=== PATIENT | male | born 1940 | race Caucasian/White ===

== ENCOUNTER 2019-07-08 16:01 | Emergency (ER) | payer MEDICARE, BC, SELFPAY ==
[2019-07-08] VITALS (9 sets, daily range): BP systolic 103–117; BP diastolic 71–81; PULSE 84–98; RESP 14–21; TEMP 36.6; O2SAT 98–100
--- NOTE | ~2019-07-08 | CT_ITS ---
EXAMINATION: CT abdomen pelvis w con EXAM DATE: 07/08/2019 17:01 INDICATION: Abdominal pain. TECHNIQUE: Spiral CT of the abdomen and pelvis was performed following intravenous injection of 100 m L Omnipaque 350. Axial, coronal and sagittal images were reviewed. The dose-length product (DLP) fo r this examination was 219.93 mGy-cm. The exposure was tailored according to patient size (auto mA e xposure control), and iterative reconstruction (ASIR) was used as additional dose reduction technique . There is no prior study for comparison. FINDINGS: There is a loop of small bowel or possibly contained abscess in the right lower quadrant co ntaining low-density fluid. If loop of bowel, low density could indicate stasis. Abscess typically mcmahon s fluid rather than low density inside. If there are no recent prior studies for comparison at [facility] institution, could repeat CT examination with administration of oral contrast to help distinguish b owel from possibility of abscess. Suspect gastric antral and duodenal bulb wall thickening, suspicious for edema, peptic ulcer disease. The liver, spleen, adrenal glands and pancreas are unremarkable. Gallbladder is unremarkable. No biliary obstruction. Portal and splenic veins are patent. Kidneys enhance symmetrically. There is no hydronephrosis. There is mild prostatomegaly. The bladder is unremarkable. There is no retroper itoneal or pelvic lymphadenopathy. Probable right hemicolectomy. There is some stool within the remaining portion of the colon and in th e rectal vault. Lungs are hyperinflated. No free intraperitoneal gas. The heart is normal in si ze. There are no pericardial or pleural effusions. The lung bases are unremarkable. There are no o steoblastic or osteolytic lesions identified. IMPRESSION: 1. Contained right lower quadrant region with low density fluid and some gas inside, could be loop o f small bowel with stasis or possibly abscess. Consider correlating with prior study or repeating exa m with oral contrast administration and then repeat CT about 2 hours following. 2. Gastric antral wall edema suspected, could be peptic ulcer disease. Reviewed, dictated and finalized at location [facility] IMPRESSION: 1. Contained right lower quadrant region with low density fluid and some gas i nside, could be loop of small bowel with stasis or possibly abscess. Consider c orrelating with prior study or repeating exam with oral contrast administration and then repeat CT about 2 hours following. 2. Gastric antral wall edema suspected, could be peptic ulcer disease.
--- NOTE | ~2019-07-08 | XR_ITS ---
EXAMINATION: XR chest 2V 07/08/2019 17:06 INDICATION: Chest pain. Weakness. PROCEDURE: 2 view chest COMPARISON: No prior studies for comparison. FINDINGS: The lungs are clear. The lungs are hyperinflated which is consistent with, but not diagnost ic of chronic obstructive pulmonary disease. The cardiomediastinal silhouette is within normal limits . There are no pleural effusions. There is no pneumothorax suspected. IMPRESSION: 1: NO ACUTE CARDIOPULMONARY DISEASE. Reviewed, dictated and finalized at location [facility]. [facility]
--- NOTE | 2019-07-08 16:05 | ECG_ITS ---
Measurements Intervals [place] Rate: 92 P: 63 ID: [id number] QRS: -3 QRSD: 98 T: 77 QT: 327 QTc: 406 Interpretive Statements SINUS RHYTHM POSSIBLE LEFT ATRIAL ENLARGEMENT PEAKED T WAVES- CONSIDER ISCHEMIA OR HYPERKALEMIA BASELINE ARTIFACT- I, III, AVL ABNORMAL ECG Electronically Signed On 07-09-2019 8:32:01 [employer]LOOR [employer]OVERING [employer] by Sourav Mckeon D.O.
[2019-07-08 16:12] LABS: Glucose Point of Care 306 (65-105)
--- NOTE | 2019-07-08 16:20 | ED.WEAKNESS ---
HPI - Weakness General Chief complaint: Weakness Stated complaint: weakness Time Seen by Provider: 07/08/19 16:06 Source: patient and RN notes reviewed Mode of arrival: EMS Limitations: no limitations History of Present Illness HPI Narrative: Pt is a 79 y/o male presenting to the ED c/o possible wound infection. Pt states he was instructed to present to the ED by his PCP, Dr. Mendy López, who is concerned the pt has an infection on his ABD incision. 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 Pt also reports ABD pain described as indigestion, decreased PO intake of food due to indigestion pain, and nausea, but denies CP or vomiting. Pt states his ABD pain is dull and rates it at a 2/10 on the pain scale in his ED bed. Pt states he is minimally able to ambulate and lives with his daughter currently. Onset (ago): week(s) (2) Location: generalized Associated symptoms: nausea/vomiting (Nausea, no vomiting) and other (ABD pain; Decreased PO intake of food due to pain) Related Data Allergies Allergy/AdvReac Type Severity Reaction Status Date / Time No Known Allergies Allergy Verified 07/08/19 19:15 Review of Systems Review of Systems: Narrative: Constitutional: Positive for generalized weakness and decreased PO intake of food due to pain. Cardiovascular: Negative for chest pain. Gastrointestinal: Positive for abdominal pain and nausea. Negative for vomiting. All systems reviewed & are unremarkable except as noted in HPI and below PMFSH Social History Social History Smoking status: Never smoker Alcohol intake: never Substance use: never Substance use type: does not use Gender identity (if verbalized by the patient): Male Spiritual care concerns: No Agree to blood products: Yes Exam Const: General: no acute distress, well developed and ill appearing Nutritional Appearance: thin (Cachectic) Orientation/consciousness: oriented to person, oriented to place, oriented to time and patient oriented x3 HENMT: Head: normocephalic Ears: external ears normal General nose exam: Normal external nose present Eyes: General: appearance normal, both eyes and all related structures Conjunctivae: conjunctivae normal Neck: Neck: normal visual inspection and full ROM Chest: Chest palpation & inspection: normal inspection of the chest and no tenderness Resp: Effort & Inspection: normal respiratory effort Auscultation: clear to auscultation bilaterally Cardio: Rate: regular rate Rhythm: regular rhythm GI: GI Palp: No abdominal tenderness and Yes Soft to palpation Skin: General skin exam: normal color, turgor normal and other (Midline incision of abdomen with some areas of seperation and RLQ Ileostomy) Neuro: General: oriented to person, oriented to place, oriented to time and patient oriented x3 Cognition (Neuro): normal cognition Extrem: General: normal to inspection, full ROM and no pedal edema Psych: Appearance: grossly normal Mental Status: mental status grossly normal Affect: normal affect Course Consultations Consultation #1: Discussed with Dr. Ramirez (surgery) at [facility], who recommends transferring to ED for evaluation. Date: 07/08/19 Time: 18:19 Consultation #2: Discussed Dr. Ryan (ED physician at [facility]), who agrees to accept for transfer. Date: 07/08/19 Time: 18:50 Vital Signs Vital signs: Vital Signs Temperature 36.6 C 07/08/19 16:06 Pulse Rate 98 07/08/19 16:06 Respiratory Rate 14 07/08/19 16:06 Blood Pressure 103/79 07/08/19 16:06 Pulse Oximetry 100 07/08/19 16:06 Temperature 36.6 C 07/08/19 16:06 Pulse Rate 85 07/08/19 19:36 Respiratory Rate 17 07/08/19 19:36 Blood Pressure 110/75 07/08/19 19:36 Pulse Oximetry 98 07/08/19 19:36 MDM - Weakness La
[2019-07-08] MEDS: SODIUM CHLORIDE 0.9% IV 1,000 ML 999 ML IV CONT (16:31)
[2019-07-08 16:37] LABS: Basophils Percent Auto 0.4 % (0.2-1.2); Eosinophils Absolute Auto 0.1 K/mm3 (0-0.3); Eosinophils Percent Auto 0.8 % (0-4.4); Hematocrit 38.9 % (42.0-52.0); Hemoglobin 12.6 g/dL (14.0-18.0); Immature Granulocyte Absolute 0.04 K/mm3 (0.00-0.031); Immature Granulocyte Percent A 0.5 % (0-0.5); Lymphocytes Absolute Auto 1.44 K/mm3 (0.9-3.2); Lymphocytes Percent Auto 18.4 % (18.3-44.2); Mean Corpuscular HGB Conc 32.4 g/dl (32-36); Mean Corpuscular Volume 89.6 fl (80-100); Mean Platelet Volume 10.4 fl (7.4-10.4); Monocytes Absolute Auto 0.7 K/mm3 (0.1-0.6); Monocytes Percent Auto 8.6 % (2.6-8.5); Neutrophils Absolute Auto 5.6 K/mm3 (1.3-6.7); Neutrophils Percent Auto 71.3 % (45.5-73.1); Platelet Count Result 247 k/mm3 (150-375); Red Blood Count 4.34 M/mm3 (4.6-6.20); Red Cell Distribution Width 15.1 % (11.5-14.5); White Blood Count 7.8 K/mm3 (4.5-10.0)
[2019-07-08 16:48] LABS: Alanine Aminotransferase 17 U/L (4-50); Albumin Level 4.5 g/dL (3.5-5.1); Alkaline Phosphatase 128 U/L (38-126); Aspartate Amino Transferase 23 U/L (17-59); Bilirubin,Total 0.4 mg/dL (0.2-1.3); Blood Urea Nitrogen 33 mg/dL (9-20); Calcium 10.8 mg/dL (8.4-10.2); Carbon Dioxide 22 mmol/L (22-30); Chloride 94 mmol/L (98-107); Estimated Glomerular Filt Rate > 60; Glucose 305 mg/dL (75-110); Potassium 4.6 mmol/L (3.4-5.0); Sodium 132 mmol/L (137-145)
[2019-07-08 16:52] LABS: Blood Urea Nitrogen 38 mg/dL (8-26); Estimated Glomerular Filt Rate > 60
--- NOTE | 2019-07-08 17:10 | PC.NURSE ---
Patient back from CT, this RN is now able to straight cath patient to obtain urine sample.
[2019-07-08 17:32] LABS: Add Urine Microscopic? YES; Appearance Urine Clear (Clear); Bilirubin Urine Negative (Negative); Blood Urine Negative (Negative); Color Urine Yellow (Yellow); Glucose Urine UA 3+ mg/dL (Negative); Ketones Urine Negative (Negative); Leukocyte Esterase Ur Negative LEU/UL (Negative); Mucus Urine Rare /lpf; Nitrate Urine Negative (Negative); Protein Urine Negative (Negative); Specific Grav Ur 1.023 (1.001-1.035); Squamous Epithelial Cell Urine Rare /hpf (Few); Urobilinogen Urine Negative mg/dL (<2.0); WBC Urine 0-3 /hpf
--- NOTE | 2019-07-08 19:04 | PC.NURSE ---
[id number] [facility]ms called for Transfer to [facility] [id number] [address] Ems Cancelled pt refusing to Go [address] [place] Called for Transfer to [facility]
== END 2019-07-08 19:37 | disposition short-term general hospital (02) ==
LOC: ANHED 16:31
PROVIDERS: Emergency Provider Emergency Medicine; PCP Family Medicine
DX: R93.5 Abnormal findings on diagnostic imaging of other abdominal regions, including retroperitoneum (principal); Z93.2 Ileostomy status; R10.84 Generalized abdominal pain; R94.31 Abnormal electrocardiogram [ECG] [EKG]
CPT/HCPCS: 36415; 51701; 71046; 74177; 80053; 81001; 85025; 93005; 96360; 96361; 99285; J7030; Q9967